=== PATIENT | female | born 1960 | race Caucasian/White ===

== ENCOUNTER 2016-09-16 13:24 | Emergency (ER) | payer MEDICAID ==
[~2016-09-16] VITALS: Ht 165.1 cm; Wt 95.3 kg
[~2016-09-16 13:24] MED LIST: AGGRENOX 25 MG-1 CER PO; AZITHROMYCIN250 M1 PO; BACTRIM DS 8001 TAB PO; CIPROFLOXACIN500 MG PO; FLEXERIL10 MG PO; NORCO 325 MG-51 TAB PO; PREDNISONE 20MG20 MG PO; PROVENTIL0.09 MG/AC IH; SEPTRA DS 800 M1 TAB PO; TESSALON PERLE200 MG PO
[2016-09-16 13:57] LABS: URINE BILIRUBIN - DIPSTICK NEGATIVE (NEG); URINE BLOOD NEGATIVE (NEG)
[2016-09-16 14:05] LABS: URINE SQUAMOUS CELLS OCC #/hpf (0-5)
--- NOTE | 2016-09-16 14:22 | Emergency Room Report ---
History of Present Illness Time Seen by [id number] Presenting Problem in Triage Pt arrived:Walked Presenting Problem:PT STATES LEFT SIDE PAIN NEAR RIB. STATES BEING SEEN BY MD AND HAVING XRAYS. STATES THEN HAD RASH APPEAR TO LEFT ABDOMEN. STATES PAIN TO LEFT LOWER BACK THAT COMES AROUND TO THE FRONT. STATES FREQUENT URINATION. DENIES BURNING WITH URINATION. STATES CRAMPS THAT BEGIN IN HER FEET AND UP HER LOWER LEGS. STATES TAKING POTASSIUM PILLS AND EATING BANANAS. STATES SYMPTOMS HAVE BEEN PRESENT FOR WEEKS. 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 N Clinical Suspician of Infection? N Mental Status: 1 - Regular (Normal Baseline) Sepsis Risk:Low Sepsis Risk Have you (or family members/close friends) recently traveled outside the [place]? N If Yes, where/when: Have you had exposure to infectious disease within the past month? N TB? Other? Specify: Comment The patient complains of LEFT flank pain, muscle cramps, and polyuria. She also has a rash on her LEFT lower abdomen. She is been having problems with LEFT flank pain since July. However she currently has an episode that started within the past week. She was seen by her primary care physician several days ago and told that it may be a warning of impending shingles. She has now broken out with a patchy red rash on her lower abdomen. No blisters. She also complains of polyuria that has been going on for weeks. She is diabetic but says her blood sugar has been under control. She is voiding in large amounts. She also complains of muscle cramps and because of this has been taking potassium supplements and eating potassium-rich foods. Her family physician has not checked her potassium. ALLERGIES Coded Allergies: Penicillins (09/16/16) nickel (09/16/16) History Medical History General CAD? No Angina: No CT: No Hypertension? No Hyperlipidemia? No CHF? No DVT? No PE? No COPD? No Asthma? No Anemia? No GERD? No Gastric ulcers? No GI Bleed? No Hernia? No Thyroid Problems? No Hypothyroidism? No CVA? No Seizures? No Diabetes? Yes Insulin Dependent: No Insulin Pump: No Home FSBS? No Renal Insuffiency? No End Stage Renal Disease? No UTI? No Stones? No BPH? No GB Disease: No Nephritic Syndrome? No Asplenia? No Hepatitis? No Sickle Cell Disease? No Arthritis? No Migraines? No Cataracts? No Glaucoma? No MRSA? No HIV? No TB? No Anxiety? No Depression? No Cancer? 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 Musculoskeletal muscle pain Skin rash Physical Exam Vital Signs Vital Signs Date Time Temp Pulse Resp B/P Pulse O2 O2 Flow FiO2 Ox Delivery Rate 09/16 1518 72 16 129/90 96 09/16 1430 70 16 134/74 97 09/16 1334 97.7 83 20 134/74 97 General Appearance obese Eye Exam - bilateral eye normal exam, bilateral eye PERRL, bilateral eye EOMI Ear, Nose, Throat hearing grossly normal, normal ENT inspection Neck normal inspection, non-tender, supple, full range of motion Respiratory Status Yes: trachea midline, chest symmetrical, non tender chest. No: respiratory distress. Lung Sounds bilateral: normal breath sounds, lungs clear. 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 No vesicles or scabs. Medical Decision Making LABS/Meds/Orders Pt receiving controlled substance in ED? Yes Hal was queried for this patient? Yes Reference #: [id number] Comment 0 rxs Results/Orders Laboratory Tests 09/16/16 1445: Serum Osmolality Pending 09/16/16 1445: Anti-Diuretic Hormone Pending 09/16/16 1445: Sodium 134 L, Potassium 4.1, Chloride 97 L, Carbon Dioxide 31, BUN 19 H, Creatinine 1.0, Estimated Creat Clear 96, Estimated GFR (MDRD) 58 L, Glucose 246 H, Calcium 9.3, Total Bilirubin 0.3, AST 16, ALT 32, Alkaline Phosphatase 105, Total Protein 8.3 H, Albumin 3.9, Globulin 4.4 H, Albumin/Globulin Ratio 0.9 L, WBC 7.9, RBC 5.27, Hgb 16.8 H, Hct 49.7 H, MCV 94.2, RDW 13.6, Plt Count 200, MPV 9.1, Gran % 50.2, Gran # 4.0, Lymphocytes % 36.2, Monocytes % 8.3 , Eosinophils % 3.4, Basophils % 1.9, Lymphocytes # 2.9, Monocytes # 0.7, Eosinophils # 0.3, Basophils # 0.2, PUBS MCHC 33.8, MCH 31.9 H, Urine Osmolality Pending 09/16/16 1330: Urine Color YELLOW, Urine Appearance CLEAR, Urine pH 5.5, Ur Specific [place] 1.025, Urine Protein NEGATIVE, Urine Ketones NEGATIVE, Urine Blood NEGATIVE, Urine Nitrate NEGATIVE, Urine Bilirubin NEGATIVE, Urine Urobilinogen 0.2, Ur Leukocyte Esterase NEGATIVE, Urine WBC OCC, Ur Squamous Epith Cells OCC, Urine Bacteria TRACE, Urine Glucose NEGATIVE Current Medication Orders Sig/Marlene Start time Last Medication Dose Route Stop Time Status Admin Sodium Chloride 10 ML PRN PRN 09/16 1430 AC IV 09/17 1428 Orders Procedure Date/time Status DIET-NOTHING BY MOUTH 09/16 D Active OSMOLALITY, URINE 09/16 143 Active OSMOLALITY, SERUM 09/16 1430 Active ANTIDIURETIC HORMONE 09/[address] ABD/PELVIS REQ 09/16 1428 Complete IV SALINE LOCK 09/16 1428 Active CBC WITH AUTO DIFF 09/16 142 Complete CHEM 12 PROFILE 09/16 1428 Complete URINALYSIS/COMPLETE 09/16 1345 Complete XRAY/CT/US XRAY/CT/US CT abdomen, pelvis Comment CT scan interpreted by radiologist: No acute process. Nonobstructing RIGHT renal stone. Diverticulosis. Departure Departure Disposition DC Home or Self Care(routine) Clinical Impression Primary Impression: Herpes zoster Qualifiers: Herpes zoster complications: without complications Qualified Code: B02.9 - Zoster without complications Secondary Impressions: Left flank pain, Muscle cramps, Polyuria Condition STABLE Referrals HARIKA QUINONEZ (Family) Patient Instructions DI for Flank Pain, DI for Shingles Additional Instructions Tests have been ordered for diabetes insipidus. Follow-up these test results with your family physician, call for appointment. Follow-up with her family physician for your rash, which may returned goods inspector to be shingles. Also, follow-up for frequent urination and cramps. Prescriptions Current Visit Scripts Famciclovir (Famvir) 500 MG PO TID #21 TAB HYDROCODONE/ACETAMINOPHEN ([place] 5-325 Tablet) 1 TAB PO Q6HP PRN pain #10 TAB ED Critical Care Critical Care No at 3124
--- NOTE | 2016-09-16 14:22 | Emergency Room Report ---
History of Present Illness Time Seen by [id number] Presenting Problem in Triage Pt arrived:Walked Presenting Problem:PT STATES LEFT SIDE PAIN NEAR RIB. STATES BEING SEEN BY MD AND HAVING XRAYS. STATES THEN HAD RASH APPEAR TO LEFT ABDOMEN. STATES PAIN TO LEFT LOWER BACK THAT COMES AROUND TO THE FRONT. STATES FREQUENT URINATION. DENIES BURNING WITH URINATION. STATES CRAMPS THAT BEGIN IN HER FEET AND UP HER LOWER LEGS. STATES TAKING POTASSIUM PILLS AND EATING BANANAS. STATES SYMPTOMS HAVE BEEN PRESENT FOR WEEKS. 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 N Clinical Suspician of Infection? N Mental Status: 1 - Regular (Normal Baseline) Sepsis Risk:Low Sepsis Risk Have you (or family members/close friends) recently traveled outside the [place]? N If Yes, where/when: Have you had exposure to infectious disease within the past month? N TB? Other? Specify: Comment The patient complains of LEFT flank pain, muscle cramps, and polyuria. She also has a rash on her LEFT lower abdomen. She is been having problems with LEFT flank pain since July. However she currently has an episode that started within the past week. She was seen by her primary care physician several days ago and told that it may be a warning of impending shingles. She has now broken out with a patchy red rash on her lower abdomen. No blisters. She also complains of polyuria that has been going on for weeks. She is diabetic but says her blood sugar has been under control. She is voiding in large amounts. She also complains of muscle cramps and because of this has been taking potassium supplements and eating potassium-rich foods. Her family physician has not checked her potassium. ALLERGIES Coded Allergies: Penicillins (09/16/16) nickel (09/16/16) History Medical History General CAD? No Angina: No NH: No Hypertension? No Hyperlipidemia? No CHF? No DVT? No PE? No COPD? No Asthma? No Anemia? No GERD? No Gastric ulcers? No GI Bleed? No Hernia? No Thyroid Problems? No Hypothyroidism? No CVA? No Seizures? No Diabetes? Yes Insulin Dependent: No Insulin Pump: No Home FSBS? No Renal Insuffiency? No End Stage Renal Disease? No UTI? No Stones? No BPH? No GB Disease: No Nephritic Syndrome? No Asplenia? No Hepatitis? No Sickle Cell Disease? No Arthritis? No Migraines? No Cataracts? No Glaucoma? No MRSA? No HIV? No TB? No Anxiety? No Depression? No Cancer? 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 Musculoskeletal muscle pain Skin rash Physical Exam Vital Signs Vital Signs Date Time Temp Pulse Resp B/P Pulse O2 O2 Flow FiO2 Ox Delivery Rate 09/16 1518 72 16 129/90 96 09/16 1430 70 16 134/74 97 09/16 1334 97.7 83 20 134/74 97 General Appearance obese Eye Exam - bilateral eye normal exam, bilateral eye PERRL, bilateral eye EOMI Ear, Nose, Throat hearing grossly normal, normal ENT inspection Neck normal inspection, non-tender, supple, full range of motion Respiratory Status Yes: trachea midline, chest symmetrical, non tender chest. No: respiratory distress. Lung Sounds bilateral: normal breath sounds, lungs clear. 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 No vesicles or scabs. Medical Decision Making LABS/Meds/Orders Pt receiving controlled substance in ED? Yes Hal was queried for this patient? Yes Reference #: [id number] Comment 0 rxs Results/Orders Laboratory Tests 09/16/16 1445: Serum Osmolality Pending 09/16/16 1445: Anti-Diuretic Hormone Pending 09/16/16 1445: Sodium 134 L, Potassium 4.1, Chloride 97 L, Carbon Dioxide 31, BUN 19 H, Creatinine 1.0, Estimated Creat Clear 96, Estimated GFR (MDRD) 58 L, Glucose 246 H, Calcium 9.3, Total Bilirubin 0.3, AST 16, ALT 32, Alkaline Phosphatase 105, Total Protein 8.3 H, Albumin 3.9, Globulin 4.4 H, Albumin/Globulin Ratio 0.9 L, WBC 7.9, RBC 5.27, Hgb 16.8 H, Hct 49.7 H, MCV 94.2, RDW 13.6, Plt Count 200, MPV 9.1, Gran % 50.2, Gran # 4.0, Lymphocytes % 36.2, Monocytes % 8.3 , Eosinophils % 3.4, Basophils % 1.9, Lymphocytes # 2.9, Monocytes # 0.7, Eosinophils # 0.3, Basophils # 0.2, PUBS MCHC 33.8, MCH 31.9 H, Urine Osmolality Pending 09/16/16 1330: Urine Color YELLOW, Urine Appearance CLEAR, Urine pH 5.5, Ur Specific [place] 1.025, Urine Protein NEGATIVE, Urine Ketones NEGATIVE, Urine Blood NEGATIVE, Urine Nitrate NEGATIVE, Urine Bilirubin NEGATIVE, Urine Urobilinogen 0.2, Ur Leukocyte Esterase NEGATIVE, Urine WBC OCC, Ur Squamous Epith Cells OCC, Urine Bacteria TRACE, Urine Glucose NEGATIVE Current Medication Orders Sig/Marlene Start time Last Medication Dose Route Stop Time Status Admin Sodium Chloride 10 ML PRN PRN 09/16 1430 AC IV 09/17 1428 Orders Procedure Date/time Status DIET-NOTHING BY MOUTH 09/16 D Active OSMOLALITY, URINE 09/16 143 Active OSMOLALITY, SERUM 09/16 1430 Active ANTIDIURETIC HORMONE 09/[address] ABD/PELVIS REQ 09/16 1428 Complete IV SALINE LOCK 09/16 1428 Active CBC WITH AUTO DIFF 09/16 142 Complete CHEM 12 PROFILE 09/16 1428 Complete URINALYSIS/COMPLETE 09/16 1345 Complete XRAY/CT/US XRAY/CT/US CT abdomen, pelvis Comment CT scan interpreted by radiologist: No acute process. Nonobstructing RIGHT renal stone. Diverticulosis. Departure Departure Disposition DC Home or Self Care(routine) Clinical Impression Primary Impression: Herpes zoster Qualifiers: Herpes zoster complications: without complications Qualified Code: B02.9 - Zoster without complications Secondary Impressions: Left flank pain, Muscle cramps, Polyuria Condition STABLE Referrals HARIKA QUINONEZ (Family) Patient Instructions DI for Flank Pain, DI for Shingles Additional Instructions Tests have been ordered for diabetes insipidus. Follow-up these test results with your family physician, call for appointment. Follow-up with her family physician for your rash, which may collar turner to be shingles. Also, follow-up for frequent urination and cramps. Prescriptions Current Visit Scripts Famciclovir (Famvir) 500 MG PO TID #21 TAB HYDROCODONE/ACETAMINOPHEN ([place] 5-325 Tablet) 1 TAB PO Q6HP PRN pain #10 TAB ED Critical Care Critical Care No at 7510
[2016-09-16 14:59] LABS: LYMPH # 2.9 K/mm3 (0.7-4.5); LYMPH % 36.2 % (10-50.0)
[2016-09-16 15:04] LABS: HEMOGLOBIN 16.8 g/dL (12.2-16.2)
--- NOTE | 2016-09-16 15:14 | RADIOLOGY REPORT PS360 ---
CT ABD PELVIS W/O CONTRAST CLINICAL INDICATION: LEFT FLANK PAIN COMPARISON: None TECHNIQUE: Axial images obtained with sagittal and coronal reformats. PROCEDURE: Oral Contrast: None IV Contrast: None . FINDINGS: Lower thorax: No acute finding ABDOMEN: Liver: Multiple calcified granulomas Gallbladder: Cholecystectomy. No biliary dilatation Pancreas: No masses or peripancreatic fluid collections. Spleen: Multiple granulomas calcified Adrenals: Unremarkable Kidneys/ureters: Nonobstructing 4 mm stone is present along the lower pole the right kidney. No hydronephrosis. No ureteral calculi. PELVIS: Reproductive: Unremarkable Bladder: Nondistended. No obvious stones or masses. Appendix: No evidence of appendicitis. ABDOMEN & PELVIS: Stomach bowel: Colonic diverticulosis without evidence of diverticulitis. No intestinal obstruction or free air. Peritoneum: No abnormal fluid collections. No obvious inflammatory changes. No free air. Lymph nodes: Scattered small mesenteric lymph nodes Vasculature: No evidence of abdominal aortic aneurysm. No retroperitoneal hemorrhage evident. Bones: No acute fracture IMPRESSION: 1. No acute intra-abdominal or pelvic pathology. 2. Nonobstructing right renal stone. 3. Other nonacute findings as described above. 4. Colonic diverticulosis. No evidence of diverticulitis
[2016-09-16] MEDS ORDERED: NORCO 325 MG-51 TAB PO (15:50)
[2016-09-16] MEDS ORDERED: FAMVIR500 MG PO (15:50)
[2016-09-16 16:04] VITALS: BP 128/94
[2016-09-19 03:40] LABS: Osmolality, Urine 588 (.)
== END 2016-09-16 16:05 | disposition home or self-care (01) ==
LOC: ER 13:24
PROVIDERS: Emergency Medicine
DX: B02.9 Zoster without complications (principal); R35.0 Frequency of micturition; E11.9 Type 2 diabetes mellitus without complications; Z72.0 Tobacco use